=== PATIENT | female | born 1970 | race Hispanic/Latino ===

== ENCOUNTER 2021-02-14 09:48 | Outpatient (CLI) | payer MEDICAID ==
--- NOTE | 2021-02-14 13:13 | Treadmill Report ---
DATE OF SERVICE: 02/14/2021 TREADMILL STRESS TEST The patient's baseline heart rate is 63. Baseline EKG is sinus rhythm, nonspecific ST-T. Baseline blood pressure was 96/63. The patient achieved peak heart rate is 146, 85% of max predicted heart rate. Peak blood pressure 131/78. The patient had no EKG changes suggestive of ischemia during the treadmill. Occasional PVCs noted. Peak of exercise that was not persistent stopped secondary to shortness of breath. SUMMARY: 1. Negative treadmill EKG. 2. Fair exercise capacity, 7 minutes 33 seconds Hu protocol. 3. No exaggerated blood pressure response to activity. 4. There were no significant EKG changes or arrhythmias suggestive of ischemia. TID: [id number] RECEIPT: [id number] NACHO
== END 2021-02-14 09:49 | disposition home or self-care (01) ==
LOC: CARD 09:48
PROVIDERS: ATTEND Internal Medicine
DX: R07.89 Other chest pain (principal)
CPT/HCPCS: 93017